=== PATIENT | female | born 1965 | race American Indian/Alaskan Native ===

== ENCOUNTER 2018-04-30 15:08 | Emergency (ER) | payer SELFPAY ==
[2018-04-30 15:17] VITALS: BP 126/84
== END 2018-04-30 16:11 | disposition left against medical advice (07) ==
LOC: ED 15:08
DX: M79.601 Pain in right arm (principal); Z53.21 Procedure and treatment not carried out due to patient leaving prior to being seen by health care provider

== ENCOUNTER 2019-06-16 19:22 | Emergency (ER) | payer MEDICARE ==
[2019-06-16 19:36] VITALS: BP 170/102
--- NOTE | 2019-06-16 20:14 | Event Note ---
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 Denies head trauma or LoC This initial assessment/diagnostic orders/clinical plan/treatment(s) is/are subject to change based on patients health status, clinical progression and re- assessment by fellow clinical providers in the ED. Further treatment and workup at subsequent clinical providers discretion. Patient/guardian urged not to elope from the ED as their condition may be serious if not clinically assessed and managed. Initial orders include: XR hip and knee
--- NOTE | 2019-06-16 20:55 | XRay Report ---
RIGHT KNEE 2 VIEW(S) INDICATION / CLINICAL INFORMATION: pain after fall COMPARISON: None available. FINDINGS: BONES / JOINT(S): No acute fracture or subluxation. No significant arthritis. SOFT TISSUES: No significant abnormality. Signer Name: Panchito Greer MD Signed: 06/16/2019 8:51 PM Workstation Name: [id number]
--- NOTE | 2019-06-16 20:55 | XRay Report ---
RIGHT HIP 2 VIEW(S) INDICATION / CLINICAL INFORMATION: pain after fall COMPARISON: None available. FINDINGS: AP pelvis, frog-leg lateral of the right hip BONES / JOINT(S): No acute fracture or subluxation. No significant arthritis. SOFT TISSUES: No significant abnormality. ADDITIONAL FINDINGS: Surgical clips and lee bowel anastomoses project over the lower abdomen and pelvis. Signer Name: Panchito Greer MD Signed: 06/16/2019 8:51 PM Workstation Name: [id number]
[2019-06-16] MEDS ORDERED: NORCO 5/325 PO ONE ×2 (22:01→23:33)
--- NOTE | 2019-06-16 23:01 | Emergency Department Report ---
ED Fall HPI - General Chief Complaint: Fall Stated Complaint: FALL Time Seen by Provider: 06/16/19 22:00 Source: patient Mode of arrival: Ambulatory - History of Present Illness Initial Comments: Pt is a 53 y/o female with hx of fibromyalgia, who presents s/p GLF today , states she sliped and fell on her deck. 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 Denies head trauma or LOC, pt remains ambulatory with minimal gait disturbance pt has pcp Dr. Martinez Yates. no results posted in [employer]. 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 denies: numbness, weakness, vertigo - Related Data Previous Rx's Medication Instructions Recorded Last Taken Type Acetaminophen/Codeine [Tylenol 1 tab PO Q6H PRN #12 tab 06/16/19 Unknown Rx /Codeine # 3 tab] Menthol/Camphor [[place] 1 applicatio TP QID PRN #1 tube 06/16/19 Unknown Rx Ointment] Allergies Allergy/AdvReac Type Severity Reaction Status Date / Time tramadol [From Ultram] Allergy Itching Verified 04/30/18 15:15 ED Review of Systems ROS: Stated complaint: FALL Other details as noted in HPI Constitutional: denies: chills, fever Eyes: denies: eye pain, eye discharge, vision change ENT: denies: ear pain, throat pain Respiratory: denies: cough, shortness of breath, wheezing Cardiovascular: denies: chest pain, palpitations Endocrine: no symptoms reported Gastrointestinal: denies: abdominal pain, nausea, vomiting, diarrhea Genitourinary: denies: urgency, dysuria, discharge Musculoskeletal: arthralgia, other (right knee , hip, and upper arm pain ). denies: back pain, joint swelling Skin: denies: rash, lesions Neurological: denies: headache, weakness, paresthesias Psychiatric: denies: anxiety, depression Hematological/Lymphatic: denies: easy bleeding, easy bruising ED Past Medical Hx - Past Medical History Previous Medical History?: Yes Hx Hypertension: Yes Additional medical history: fibromyalgia - Surgical History Past Surgical History?: Yes Additional Surgical History: cancer sx, colon sx - Social History Smoking Status: Never Smoker Substance Use Type: Marijuana - Medications Home Medications: Home Medications Medication Instructions Recorded Confirmed Last Taken Type Acetaminophen/Codeine [Tylenol 1 tab PO Q6H PRN #12 tab 06/16/19 Unknown Rx /Codeine # 3 tab] Menthol/Camphor [[place] 1 applicatio TP QID PRN #1 tube 06/16/19 Unknown Rx Ointment] ED Physical Exam - General Limitations: No Limitations General appearance: alert, in no apparent distress - Head Head exam: Present: atraumatic, normocephalic - Eye Eye exam: Present: normal appearance, PERRL, EOMI Pupils: Present: normal accommodation - ENT ENT exam: Present: mucous membranes moist - Neck Neck exam: Present: normal inspection, full ROM. Absent: tenderness (no posterior vertebral point tenderness ), meningismus, lymphadenopathy, thyromegaly - Expanded Neck Exam Expanded Neck exam: Absent: tenderness (rom intact to all polo without restriction), midline deformity, anterior neck swelling, thyroid mass, carotid bruit, tracheal deviation - Respiratory Respiratory exam: Present: normal lung sounds bilaterally. Absent: respiratory distress, wheezes, stridor, chest wall tenderness - Cardiovascular Cardiovascular Exam: Present: regular rate, normal rhythm, normal heart sounds. Absent: systolic murmur, diastolic murmur, rubs, gallop - GI/Abdominal GI/Abdominal exam: Present: soft, normal bowel sounds. Absent: distended, tenderness, guarding, rebound, rigid, bruit, hernia - Rectal Rectal exam: Present: deferred - Extremities Exam Extremities exam: Present: full ROM, tenderness (right anterior knee and hip no deformity no bleeding no crepitus no stepoff, rom intact and unrestricted.), normal capillary refill. Absent: pedal edema, joint swelling, calf tenderness - Expanded Upper Extremity Exam Right Shoulder Exam: Present: full ROM. Absent: tenderness, swelling, abrasion, laceration, ecchymosis, deformity, crepidus, dislocation, erythema, tenderness over AC joint Upper Arm exam: Present: full ROM. Absent: tenderness, swelling, abrasion, laceration, ecchymosis, deformity, crepidus, dislocation, erythema Elbow exam: Present: full ROM. Absent: tenderness Forearm Wrist exam: Present: full ROM. Absent: tenderness Hand Wrist exam: Present: full ROM. Absent: tenderness Neuro motor exam: Present: wrist extension intact, thumb opposition intact, thumb IP flexion intact, thumb adduction intact, fingers 2-5 abduction intact Neurosensory exam: Present: 2-point discrimination, radial nerve intact, ulnar nerve intact, median nerve intact Vascular: Present: normal capillary refill, radial pulse, brachial pulse, ulnar pulse. Absent: pulse deficit radial art, pulse deficit ulnar art, pulse deficit brachial art - Expanded Lower Extremity Exam Right Hip exam: Present: normal inspection, full ROM. Absent: tenderness, swelling, abrasion, laceration, ecchymosis, deformity, crepidus, dislocation, erythema, external rotation, internal rotation, shortening, pelvic stability Upper Leg exam: Present: normal inspection, full ROM. Absent: tenderness, swelling Knee exam: Present: normal inspection, full ROM, full knee extension. Absent: t enderness, swelling, abrasion, laceration, ecchymosis, deformity, crepidus, dislocation, erythema, effusion, pain w/ pronation/supination, posterior draw sign, pain/laxity with valgus, pain/laxity with varus Lower Leg exam: Present: full ROM. Absent: tenderness, swelling Ankle exam: Present: normal inspection, full ROM. Absent: tenderness, swelling Foot/Toe exam: Present: full ROM. Absent: tenderness, swelling Neuro vascular tendon exam: Absent: pulse deficit, motor deficit, sensory deficit, tendon deficit, peroneal nerve deficit Gait: Positive: observed and normal - Back Exam Back exam: Present: normal inspection, full ROM. Absent: tenderness, CVA tenderness (R), CVA tenderness (L), muscle spasm, paraspinal tenderness, vertebral tenderness, rash noted - Expanded Back Exam Expanded Back exam: Absent: saddle anesthesia Back exam: Negative Straight Leg Raising: Left, Right - Neurological Exam Neurological exam: Present: alert, oriented X3, CN II-XII intact, normal gait, reflexes normal. Absent: motor sensory deficit - Psychiatric Psychiatric exam: Present: normal affect, normal mood - Skin Skin exam: Present: warm, dry, intact, normal color. Absent: rash ED Course Vital Signs 06/16/19 06/16/19 19:34 22:45 Temperature 97.8 F Pulse Rate 74 Respiratory 18 18 Rate Blood Pressure 170/102 O2 Sat by Pulse 99 Oximetry ED Medical Decision Making - Radiology Data Radiology results: report reviewed, image reviewed [address] [address] XRay Report Signed Patient: CHRISSY JORGENSEN MR#: [id number] : 1965 Acct:[id number] Age/Sex: 53 / F ADM Date: 06/16/19 Loc: ED Attending Dr: Ordering Physician: KENN MOORE Date of Service: 06/16/19 Procedure(s): XR knee 1-2V RT Accession Number(s): [id number] cc: KENN MOORE Fluoro Time In Minutes: RIGHT KNEE 2 VIEW(S) INDICATION / CLINICAL INFORMATION: pain after fall COMPARISON: None available. FINDINGS: BONES / JOINT(S): No acute fracture or subluxation. No significant arthritis. SOFT TISSUES: No significant abnormality. Signer Name: Panchito Greer MD Signed: 06/16/2019 8:51 PM Workstation Name: [id number] Transcribed By: DMB Dictated By: Panchito Greer MD Electronically Authenticated By: Panchito Greer MD Signed Date/Time: 06/16/192050 DD/ [address] [address] XRay Report Signed Patient: CHRISSY JORGENSEN MR#: [id number] : 1965 Acct:[id number] Age/Sex: 53 / F ADM Date: 06/16/19 Loc: ED Attending Dr: Ordering Physician: KENN MOORE Date of Service: 06/16/19 Procedure(s): XR hip 2-3V RT Accession Number(s): [id number] cc: KENN MOORE Fluoro Time In Minutes: RIGHT HIP 2 VIEW(S) INDICATION / CLINICAL INFORMATION: pain after fall COMPARISON: None available. FINDINGS: AP pelvis, frog-leg lateral of the right hip BONES / JOINT(S): No acute fracture or subluxation. No significant arthritis. SOFT TISSUES: No significant abnormality. ADDITIONAL FINDINGS: Surgical clips and lee bowel anastomoses project over the lower abdomen and pelvis. Signer Name: Panchito Greer MD Signed: 06/16/2019 8:51 PM Workstation Name: [id number] Transcribed By: NOE Dictated By: Panchito Greer MD Electronically Authenticated By: Panchito rGeer MD Signed Date/Time: 06/16/192050 DD/ 48 TD/TT: - Medical Decision Making xrays normal no fracture no deformity no abrasion no lacerations no bleeding , This is a knee and hip strain, pain is improved with medications given in ed, plan: dc to home in stable condition, pt is on daily meloxicam for fibromyalgia rx by pcp, plan, Tylenol #3 for breakthroug pain , RICE therapy Moist heat therapy follow up with with pcp in 2-3 days, return to ed if symptoms worsen, Critical care attestation.: If time is entered above; I have spent that time in minutes in the direct care of this critically ill patient, excluding procedure time. ED Disposition Clinical Impression: Musculoskeletal pain Fall Qualifiers: Encounter type: initial encounter Qualified Code(s): W19.XXXA - Unspecified fall, initial encounter Knee strain Qualifiers: Encounter type: initial encounter Laterality: right Qualified Code(s): S86.911A - Strain of unspecified muscle(s) and tendon(s) at lower leg level, right leg, initial encounter Hip strain Qualifiers: Encounter type: initial encounter Laterality: right Qualified Code(s): S76.011A - Strain of muscle, fascia and tendon of right hip, initial encounter Disposition: DC-01 TO HOME OR SELFCARE Is pt being admited?: No Does the pt Need Aspirin: No Condition: Stable Instructions: Muscle Strain (ED), Knee Exercises (GEN), Arthralgia (ED), Knee Pain (ED), Fall Prevention (ED) Additional Instructions: follow up with your pco Martinez Yates in 2-3 days return to ed if symptoms worsen. Prescriptions: Menthol/Camphor [[place] Ointment] 1 applicatio TP QID PRN #1 tube PRN Reason: pain Acetaminophen/Codeine [Tylenol /Codeine # 3 tab] 1 tab PO Q6H PRN #12 tab PRN Reason: pain Referrals: MAIDA BROWNING MD [Primary Care Provider] - 3-5 Days Forms: Work/School Release Form(ED) Time of Disposition: 23:17
== END 2019-06-16 23:50 | disposition home or self-care (01) ==
LOC: ED 19:22
DX: S76.011A Strain of muscle, fascia and tendon of right hip, initial encounter (principal); S86.911A Strain of unspecified muscle(s) and tendon(s) at lower leg level, right leg, initial encounter; M25.511 Pain in right shoulder; I10 Essential (primary) hypertension; F12.10 Cannabis abuse, uncomplicated; Z79.899 Other long term (current) drug therapy; Z88.6 Allergy status to analgesic agent; X58.XXXA Exposure to other specified factors, initial encounter; Y93.89 Activity, other specified; Y92.89 Other specified places as the place of occurrence of the external cause; Y99.8 Other external cause status